=== PATIENT | male | born 1960 | race Caucasian/White ===

== ENCOUNTER 2017-03-20 08:16 | Day surgery (SDC) | payer OTHER ==
[~2017-03-20] VITALS: Ht 182.9 cm; Wt 117.5 kg
[~2017-03-20 08:16] MED LIST: COZAAR100 MG PO; FLUTICASONE PRO16 GM NAS; LAMISIL250 MG PO; NORCO 5-325 TA1 EACH PO; XARELTO15 MG PO
--- NOTE | 2017-03-20 10:33 | NUR ---
03/20/17 Rolando3 Celena Arellano 1029 O2 REMOVED. PT O2 SAT 100%
--- NOTE | 2017-03-21 12:04 | OR ---
[facility] [address] [place], [place] [address] Signed DATE OF OPERATION: 03/20/2017 SURGEON: Nelsy Tavarez MD PREOPERATIVE DIAGNOSES: 1. Father with a history of colonic polyps, age 50. 2. Personal history of hyperplastic polyps, age 51. 3. Diverticulosis. 4. External hemorrhoids with skin tags. POSTOPERATIVE DIAGNOSES: 1. Minimal to moderate sigmoid diverticulosis. 2. Minimal to moderate internal and external hemorrhoids with external skin tags. 3. A 4 to 6 mm polyps at 60, 40 and 30 cm. PROCEDURE: Colonoscopy with hot biopsy. ESTIMATED BLOOD LOSS: None. INDICATIONS: Zia is a 56-year-old gentleman asked to see me for followup colonoscopy. His father had colonic polyps removed at age 40. Zia had hyperplastic polyps removed at age 51. He is also known to have diverticulosis along with some external hemorrhoids and skin tags. In the meantime, he said he is doing great except he developed a thrombosis and has been on Xarelto. Consequently, we had him hold his Xarelto 2 days before the procedure. Otherwise, he said he is doing fine. Zia was very familiar with colonoscopy. He understands the risks including, but not limited to, gas bloating, crampy abdominal pain, bleeding, perforation, requiring surgery, and missed diagnosis. He also understands the need for IV conscious sedation. He had expressed understanding and wished to proceed. PROCEDURE NOTE: Zia was taken into our endoscopy suite and placed in the left lateral decubitus position. He was given divided doses of 7 mg of Versed and 150 mcg of fentanyl. A digital rectal exam was performed and this was unremarkable. The adult colonoscope was introduced and advanced all around into the cecum under direct visualization of camera without difficulty. His prep was good. Scope was then slowly withdrawn. The above-mentioned polyps were easily removed with the help of hot biopsy forceps. Once again, he does have minimal to moderate sigmoid diverticulosis. He has the external hemorrhoids with external anal skin tags. It also has a little bit internal hemorrhoids as well. After this, the gas had been suctioned out and the colonoscope removed. Zia tolerated the procedure quite well. Electronically Signed By: NELSY TAVAREZ MD 03/21/17 1204 PATIENT NAME: ZIA APODACA OPERATIVE REPORT DATE OF : 60 PHYSICIAN: NELSY TAVAREZ MD REPORT #: [id number] REPORT IS CONFIDENTIAL AND NOT TO BE RELEASED WITHOUT AUTHORIZATION [address] [address] Signed RECOMMENDATIONS: I will see Zia back in my office in 7 to 14 days to review his results. He can resume his Xarelto in 5 days. MD JUAN PABLO Hall/IERNE /[id number] cc: Veronica Pressley MD Electronically Signed By: NELSY TAVAREZ MD 03/21/17 1204 PATIENT NAME: ZIA APODACA LINDA OPERATIVE REPORT DATE OF : 60 PHYSICIAN: NELSY TAVAREZ MD REPORT #: [id number] REPORT IS CONFIDENTIAL AND NOT TO BE RELEASED WITHOUT AUTHORIZATION
== END 2017-03-20 10:53 | disposition home or self-care (01) ==
LOC: OPS 08:16 → DS 09:45 → OPS 09:45
PROVIDERS: Colon & Rectal Surgery
PROC: 0DBE8ZX Excision of Large Intestine, Via Natural or Artificial Opening Endoscopic, Diagnostic (ICD-10-PCS; 2017-03-20)
PROC: 0DBF8ZX Excision of Right Large Intestine, Via Natural or Artificial Opening Endoscopic, Diagnostic (ICD-10-PCS; 2017-03-20)
PROC: 0DBG8ZX Excision of Left Large Intestine, Via Natural or Artificial Opening Endoscopic, Diagnostic (ICD-10-PCS; principal; 2017-03-20 09:45)
DX: K64.4 Residual hemorrhoidal skin tags (principal); K64.8 Other hemorrhoids; K57.30 Diverticulosis of large intestine without perforation or abscess without bleeding; I10 Essential (primary) hypertension; G47.33 Obstructive sleep apnea (adult) (pediatric); E78.5 Hyperlipidemia, unspecified; K76.0 Fatty (change of) liver, not elsewhere classified; Z86.010 Personal history of colon polyps; Z83.71 Family history of colonic polyps; Z79.01 Long term (current) use of anticoagulants; Z86.718 Personal history of other venous thrombosis and embolism; Z90.89 Acquired absence of other organs; Z98.890 Other specified postprocedural states; Z88.0 Allergy status to penicillin; Z79.899 Other long term (current) drug therapy
CPT/HCPCS: 99152; 99153; J2250; J3010; J7120

== ENCOUNTER 2017-04-04 18:17 | Observation (INO) | payer OTHER ==
[~2017-04-04] VITALS: Ht 185.4 cm; Wt 112.4 kg
[2017-04-04] MEDS ORDERED: XARELTO20 MG PO (19:46)
--- OUTSIDE RECORDS SUMMARY | 2017-04-04 19:52 | XMS | Clinical Summary ---
Demographics + + + | Address | [address] | | | [place] [address] | + + + | Home Phone | | + + + | Preferred Language | Unknown | + + + | Marital Status | Single | + + + | Faith Affiliation | Unknown | + + + | Race | White | + + + | Ethnic Group | Not or | + + + Author + + + | Author | [facility] | + + + | Organization | [facility] | + + + | Address | Unknown | + + + | Phone | Unavailable | + + + Support +------+ +---------+ + | Name | Relationship | Address | Phone | +------+ +---------+ + ECON | Unknown | | +------+ +---------+ + Care Team Providers + +------+-------+ | Care Business Account Leader Name | Role | Phone | + +------+-------+ | Sharif Pressley MD | PP | tel | + +------+-------+ Source Comments SYDNI is fully live on both [facility] and [facility]ly [facility] Allergies + + + +--------+ + | Active Allergy | Reactions | Severity | Noted | Comments | | | | | Date | | + + + +--------+ + | Penicillins | Rash | | | | + + + +--------+ + Current Medications + + +-------+---------+------+------+-------+ | Prescription | Sig. | Disp. | Refills | Star | End | Statu | | | | | | t | Date | s | | | | | | Date | | | + + +-------+---------+------+------+-------+ | rivaroxaban 20 mg | Take by mouth. | | | | | Activ | | oral tablet | | | | | | e | + + +-------+---------+------+------+-------+ | fluticasone 50 | Instill 2 sprays | | | | | Activ | | mcg/actuation nasal | into each nostril | | | | | e | | spray,suspension | once daily. | | | | | | + + +-------+---------+------+------+-------+ Active Problems Not on file Social History + +-------+ +--------+------+ | Tobacco Use | Types | Packs/Day | Years | Date | | | | | Used | | + +-------+ +--------+------+ | Never Smoker | | | | | + +-------+ +--------+------+ + +------+---+---+ | Smokeless Tobacco: | Chew | | | | Former User | | | | + +------+---+---+ + + +---------+ + | Alcohol Use | Drinks/We | oz/Week | Comments | | | ek | | | + + +---------+ + | No | | | | + + +---------+ + + + + | Sex Assigned at | Date Recorded | | | | + + + | Not on file | | + + + Last Filed Vital Signs + + + + | Vital Sign | Reading | Time Taken | + + + + | Blood Pressure | 150/98 | 05/09/2016 12:43 PM PST | + + + + | Pulse | 87 | 05/09/2016 12:37 PM PST | + + + + | Temperature | 36.8 C (98.2 F) | 05/09/2016 12:37 PM PST | + + + + | Respiratory Rate | 16 | 05/09/2016 12:37 PM PST | + + + + | Oxygen Saturation | 98% | 05/09/2016 12:37 PM PST | + + + + | Inhaled Oxygen | - | - | | Concentration | | | + + + + | Weight | 122.3 kg (269 lb | 05/09/2016 12:37 PM PST | | | 11.2 oz) | | + + + + | Height | 185.4 cm (6' 1") | 05/09/2016 12:37 PM PST | + + + + | Body Mass Index | 35.58 | 05/09/2016 12:37 PM PST | + + + + Plan of Treatment + + + + + | Health Maintenance | Due Date | Last Done | Comments | + + + + + | INFLUENZA VACCINE | | | | | (FLU SHOT) | 7 | | | + + + + + Results Not on filefrom Last 3 Months
--- NOTE | 2017-04-04 23:16 | NUR ---
WHITEBOARD UPDATED, VITAL SIGNS TAKEN.
--- NOTE | 2017-04-04 23:45 | NUR ---
V/S ARE WDL, PT HAS ACTIVE BOWEL SOUNDS IN ALL QUADRANTS. PT DENIES PASSING GAS. PT DENIES PAIN AND N/V. ALL LOBES ARE CLEAR. PT IS AWAKE IN BED. NO NEW CONCERNS AT THIS TIME.
--- NOTE | 2017-04-05 00:02 | NUR ---
patient in bed doing well. does not need anything at this time.
--- NOTE | 2017-04-05 01:15 | NUR ---
PT IS AWAKE IN BED RESTING. PT DENIES PAIN AND N/V
--- NOTE | 2017-04-05 02:17 | NUR ---
REFILLED PATIENT'S ICE WATER
--- NOTE | 2017-04-05 03:46 | NUR ---
PT HAS BEEN SLEEPING SOME. PT STILL DENIES PAIN AND N/V. PT IS TRYING TO SLEEP SOME MORE.
--- NOTE | 2017-04-05 04:17 | NUR ---
PATIENT ASLEEP, DOES NOT NEED ANYTHING AT THIS TIME.
--- NOTE | 2017-04-05 05:50 | NUR ---
SINCE ARRIVAL ON FLOOR PT HAS DENIED PAIN AND N/V. V/S SO FAR HAVE BEEN WDL. PT HAS ACTIVE BOWEL TONES IN ALL QUADRANTS BUT HAS NOT PASSED GAS. ALL LOBES ARE CLEAR. PT AMBULATES WELL IN ROOM. NO NEW CONCERNS NOTED SO FAR.
--- NOTE | 2017-04-05 06:39 | NUR ---
refilled ice water
--- NOTE | 2017-04-05 07:21 | NUR ---
RECIEVED REPORT FROM RESIDENTIAL GREEN BUILDING DESIGNER NURSE. PATIENT SLEEPING IN BED. IVF INFUSING W/O DIFFICULTY. CALL LIGHT IN REACH.
--- NOTE | 2017-04-05 08:27 | NUR ---
PATIENT RESTING IN BED. IVF INFUSING W/O DIFFICULTY. PATIENT C/O PAIN IN LUQ ABOUT 07/31. HE DENIES PAIN MEDICATION AT THIS TIME. LUNGS CLEAR, HR REGULAR, ACTIVE BS. STATES HE PASSED GAS THIS MORNING AROUND 3AM. PATIENT DENIES NEEDS AT THIS TIME.
--- NOTE | 2017-04-05 09:30 | NUR ---
PATIENT UP TO BATHROOM INDEPENDENTLY. EMPTIED URINAL. REMOVED MEAL TRAY. PATIENT DRANK 100%. PATIENT STATES PAIN HAS DIMINISHED SINCE LAST TIME I ASKED. DENIES NEEDS. CALL LIGHT IN REACH.
--- NOTE | 2017-04-05 10:03 | NUR ---
IN TO SEE PATIENT.
[2017-04-05] MEDS ORDERED: LEVAQUIN500 MG PO (10:05)
[2017-04-05] MEDS ORDERED: GUAIFENESIN AC473 ML PO (10:12)
[2017-04-05] MEDS ORDERED: GUAIFENESIN DM S5 ML PO (10:14)
--- NOTE | 2017-04-05 10:28 | NUR ---
PT IS SITTING UP IN BED RESTING SAFELY WITH CALL LIGHT IN REACH. PT DID NOT NEED ANYTHING AT THE MOMENT
--- NOTE | 2017-04-05 11:21 | NUR ---
PATIENT RESTING IN BED READING A BOOK. DENIES NEEDS AT THIS TIME. CALL LIGHT IN REACH.
--- NOTE | 2017-04-05 11:41 | NUR ---
MED REC COMPLETE. PATIENT RECEIVES THEIR RIVAROXABAN (XARELTO) FROM [facility] DUE TO DISCOUNT PROGRAM, ALL OTHER MEDS FROM [facility].
--- NOTE | 2017-04-05 12:41 | NUR ---
PATIENT RESTING IN BED. UP TO BATHROOM INDEPENDENTLY. EMPTIED URINAL. FAMILY IN TO VISIT. PATIENT C/O PAIN IN LUQ 3/10, DENIES THE NEED FOR PAIN MEDICATION. PATIENT STATES THAT HIS PAIN DID INCREASE TO 4/10 AFTER HE DRANK FLUIDS FOR LUNCH, BUT SINCE THEN IT HAS SETTLED. PATIENT DENIES NEEDS. CALL LIGHT IN REACH. SCDS IN PLACE.
--- NOTE | 2017-04-05 12:51 | NUR ---
PT SITTING IN BED, WELCOMED ME IN. HE IS ALERT AND ORIENTED, AND SEEMS TO BE HANDLING THIS AILMENT APPROPRIATELY. IV ALARM GOING OFF, REALLY BOTHERING HIM. I WILL HAVE RN CHECK AND FOLLOW NEEDED
--- NOTE | 2017-04-05 14:00 | NUR ---
PATIENT RESTING IN BED. EMPTIED URINAL. VS OBTAINED. PATIENT STATES PAIN STILL A 3/10, STILL DENIES NEED FOR PAIN MEDICATION. CALL LIGHT IN REACH.
--- NOTE | 2017-04-05 14:33 | NUR ---
PT IS RESTING IN BED SAFELY WITH CALL LIGHT IN REACH.
--- NOTE | 2017-04-05 15:14 | NUR ---
PATIENT RESTING IN BED. SIGNIFICANT OTHER AT BEDSIDE. PATIENT HAD A BM TODAY AROUND 1PM. PATIENT STATES HIS BM WAS FORMED, SOMEWHAT HARD. BOWEL SOUNDS ARE ACTIVE. LUNGS CLEAR. NO EDEMA. PALPABLE PEDAL PULSES. SCDS IN PLACE. PATIENT C/O PAIN ABOUT 3/10 IN LUQ. DENIES NEED FOR PAIN MEDICATION. DELIVERED CUP OF BROTH PER PT'S REQUEST. PATIENT DENIES FURTHER NEEDS. CALL LIGHT IN REACH.
--- NOTE | 2017-04-05 16:30 | NUR ---
SET PATIENT UP FOR A SHOWER.
--- NOTE | 2017-04-05 17:18 | NUR ---
HOOKED PATIENT BACK UP TO INFUSION PUMP. SCDS IN PLACE. MEAL TRAY SERVED. PATIENT DENIES NEEDS.
--- NOTE | 2017-04-05 17:52 | NUR ---
PATIENT HAS BEEN IN A STEADY 3/10 PAIN ALL DAY. PAIN INCREASES AT TIMES WITH DRINKING, BUT OTHER THAN THAT HAS BEEN IN CONTROL. HE HAS BEEN REFUSING PAIN MEDICATION ALL DAY. PATIENT HAD A BM TODAY, HE HAS BEEN PASSING FLATUS. ACTIVE BOWEL TONES. SHOWERED TONIGHT. PLAN IS TO ADMINISTER IV ABX, MONITOR FOR CHANGES AND HOPE THE BODY WILL REPAIR ITSELF. VS STABLE.
--- NOTE | 2017-04-05 18:29 | EKG ---
[facility] [address] [facility] [place] [address] Signed Normal sinus rhythm Normal ECG No previous ECGs available Confirmed by ALEYDA MILTON MD ([id number]) on 04/05/2017 6:29:22 PM Electronically Signed By: ALEYDA MILTON MD 04/05/17 1829 PATIENT NAME: ZIA APODACA LINDA Electrocardiogram DATE OF : 60 PHYSICIAN: ALEYDA MILTON MD REPORT #: [id number] REPORT IS CONFIDENTIAL AND NOT TO BE RELEASED WITHOUT AUTHORIZATION
--- NOTE | 2017-04-05 19:15 | NUR ---
SHIFT REPORT RECIEVED. PATIENT RESTING IN BED. SCDS IN PLACE. IV FLUIDS INFUSING PER ORDER. PATIENT DENIES NEEDS. CALL LIGHT IN REACH.
--- NOTE | 2017-04-05 21:45 | NUR ---
PATIENT RESTING IN BED. AAOX3. LUNGS CLEAR. ABD IS MILDLY DISTENDED, BUT SOFT AND NON TENDER. PATIENT REPORTS DULL PAIN IN THE LUQ, 2/10. HE STATES WITH MOVEMENT OR DEEP BREATHS THE PAIN BECOMES SHARP. BOWEL SOUNDS ARE HYPOACTIVE THROUGHOUT. NO NAUSEA. TOLERATING CLEAR LIQUIDS. SCDS IN USE. IV FLUIDS INFUSING PER ORDER. NO REQUEST AT THIS TIME. CALL LIGHT IN REACH.
--- NOTE | 2017-04-05 23:55 | NUR ---
PATIENT RESTING IN BED. STATES THAT HE IS FEELING GOOD BUT REQUEST PRN PAIN MEDICATION FOR 4/10 PAIN. NO NUASEA. BOWEL SOUNDS ACTIVE AFTER PATIENT UP TO THE BATHROOM. ABD IS MILDLY DISTENDED AND SOFT. IV ABX INFUSING. IV SITE WNL. NO NEEDS AT THIS TIME. PRN PAIN MEDS PROVIDED PER ORDER.
--- NOTE | 2017-04-06 03:56 | NUR ---
PATIENT RESTING. APPEARS COMFORTABLE. RR 15. IV FLUIDS INFUSING, SITE WNL. CALL LIGHT IN REACH.
--- NOTE | 2017-04-06 05:30 | NUR ---
PATIENT RESTING IN BED. STATES HIS PAIN IS IMPROVED FROM YESTERDAY. HE FEELS THAT HE RESTED WELL. HE HAS NO NEEDS AT THIS TIME. IV ABX ADMINISTERED PER ORDER.
--- NOTE | 2017-04-06 06:03 | CONS ---
[facility] [address] [place], [place] [address] Signed DATE OF CONSULTATION: 04/05/2017 CHIEF COMPLAINT: Left upper quadrant abdominal pain. HISTORY OF PRESENT ILLNESS: Zia is a 56-year-old gentleman, who came to us on 03/20/2017 for a routine followup colonoscopy. We know that his father has a history of colonic polyps at age 50. Zia himself had hyperplastic polyps removed at age 51 and is known to have diverticulosis as well as some external hemorrhoids. On this occasion, we did see tomyiew-mo-qhtwinyb sigmoid diverticulosis along with ryytotx-fr-dqlcqske internal and external hemorrhoids with skin tags. In addition, he had 4 to 6-mm polyps removed at 60, 40, and 30 cm with the help of hot biopsy forceps. He told the day after surgery with some fever and chills and we warned him that it could be a perforation, but he rapidly got better by the next day, and so he continued at home on a regular diet. We saw him back in the office about a week afterwards and he seemed to be doing quite well. He then developed some recurrent pain in his left upper quadrant and had been to his primary care provider. He had been off the Xarelto for the further colonoscopy, so there were some concerns he might have a pulmonary embolism. He ended up having a CT scan of the chest performed and for reasons were not clear, the design engineering technician carried the CAT scanner all the way down to the abdomen. He does not have a pulmonary embolism, but he indeed had some inflammation with a few air bubbles around the splenic flexure of the colon in the left upper quadrant, consistent with the area of his pain. Consequently, I had been asked to see him last night in the emergency room. I had met with him last night after finishing some emergency surgery and he is doing very well except for little bit of pain in the left upper quadrant. He actually wanted to go home. I convinced Zia and his girlfriend that we should leave keeping for couple of days in the hospital for observation and IV antibiotics. Also, he has had a cough, so we chose Levaquin and Flagyl to cover both the lungs and the colon. His white count has been normal and has stayed normal. Overnight, he has done great and we are going to continue on a current conservative course. Incidentally, there is a 12-mm right thyroid nodule that will need further evaluation as an outpatient. ALLERGIES: Penicillin causes a rash. MEDICATIONS: 1. Xarelto 20 mg p.o. daily. 2. Fluticasone nasal suspension to be used as directed. PAST MEDICAL HISTORY: Dysuria, hypertension, left lower extremity venous thrombosis, obstructive sleep apnea, colonic polyps, colonic diverticulosis, unilateral inguinal hernia, prostatitis, hyperlipidemia, and hay fever. Electronically Signed By: NELSY TAVAREZ MD 04/06/17 0603 PATIENT NAME: ZIA APODACA CONSULTATION DATE OF : 60 PHYSICIAN: NELSY TAVAREZ MD REPORT #: [id number] REPORT IS CONFIDENTIAL AND NOT TO BE RELEASED WITHOUT AUTHORIZATION [address] [address] Signed PAST SURGICAL HISTORY: Includes tonsillectomy with adenoidectomy, repair of his shoulder separation in 1982, and at least 2 colonoscopies with biopsies. SOCIAL HISTORY: He likes to have little coffee each week. He is not a smoker. He chewed tobacco for 20 years, but he quit 4 years ago. He does not drink. He does not use drugs. 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 He is and has a daughter and one stepdaughter. His mother and father still [place]. FAMILY HISTORY: Paternal grandfather had bone cancer. Maternal grandfather had heart disease. Father had colonic polyps, around age 50. His father also had coronary artery disease and diabetes. His mother had hypertension and a sister had breast cancer. REVIEW OF SYSTEMS: He had 10 systems reviewed and otherwise, he is doing well. He talked about his CPAP mask at home. He said there has been no abnormal reaction from anesthesia for himself or others in the family. PHYSICAL EXAMINATION: VITAL SIGNS: Blood pressure 127/80, heart rate 65, respiratory rate 18, temperature 97.6, and he is 97% on room air. He is 6 feet and 1 inch tall at 112 kg. GENERAL: Zia is a 56-year-old gentleman, who appears healthy and at his stated age. LUNGS: Clear to auscultation. HEART: Regular rate and rhythm. ABDOMEN: Benign. Last night, he had a little tenderness up underneath the costal margin and this morning, it is quite minimal. RECTAL: Not performed. LABORATORY DATA: His white blood cell count 6.9, hemoglobin 14, and neutrophils 67. BUN 14 and creatinine 0.7. RADIOGRAPHIC STUDIES: CT scan of the chest and abdomen showed no evidence of pulmonary embolism, but he has some pericolonic inflammation with a few air bubbles around the splenic flexure. Incidentally, he has a 12-mm right thyroid nodule, which will need outpatient evaluation. ASSESSMENT AND PLAN: Zia is a 56-year-old gentleman, who presents as above with what appears to be a delayed and/or persistent microperforation of the colon following his colonoscopy with a biopsy Electronically Signed By: NELSY TAVAREZ MD 04/06/17 0603 PATIENT NAME: ZIA APODACA CONSULTATION DATE OF : 60 PHYSICIAN: NELSY TAVAREZ MD REPORT #: [id number] REPORT IS CONFIDENTIAL AND NOT TO BE RELEASED WITHOUT AUTHORIZATION [facility] [address] [place], [place] [address] Signed up at 60 cm. He has been stable over the 2 weeks and already feels better with one night of IV antibiotics. We will keep him on clear liquids today and continued IV antibiotics and we will try to treat this conservatively and see if it does heal on its own. Hopefully, it does not need surgery to repair that. I have reviewed this with Zia, his mother, and his girlfriend. They have expressed understanding and agreed to the above plan. MD JUAN PABLO Hall/ELAINEL /[id number] cc: MD Veronica Hall MD Electronically Signed By: NELSY TAVAREZ MD 04/06/17 0603 PATIENT NAME: ZIA APODACA CONSULTATION DATE OF : 60 PHYSICIAN: NELSY TAVAREZ MD REPORT #: [id number] REPORT IS CONFIDENTIAL AND NOT TO BE RELEASED WITHOUT AUTHORIZATION
--- NOTE | 2017-04-06 06:22 | NUR ---
PATIENT RESTED WELL LAST NIGHT. ABD IS SOFT, MILDLY DISTENDED W/ACTIVE BOWEL SOUNDS. MINIMAL PAIN. OUTPUT QS. IVF INFUSING. PATIENT INDEPENDENT IN ROOM. TOLERATING CLEAR LIQUIDS, NO NAUSEA.
--- NOTE | 2017-04-06 07:50 | NUR ---
RECIEVED BEDSIDE REPORT FROM RASHMI JIMÉNEZ. PT AWAKE AND ALERT IN BED, NO COMPLAINTS AT THIS TIME.
--- NOTE | 2017-04-06 08:21 | NUR ---
PT UP IN CHAIR, ATE BREAKFAST. PT STATES PAIN IS REDUCED FROM YESTERDAY, MORE OF A DISCOMFORT NOW. DECLINED PAIN MEDS AT THIS TIME. PT STATES HE HAD A FLU SHOT IN OR JANUARY, ORDER DC.
--- NOTE | 2017-04-06 11:10 | NUR ---
CHANGED PATIENT'S LINENS ALSO HE SAID HE PLANS ON TAKING A SHOWER SOMETIME THIS AFTERNOON. INDEPENDENT. SET UP HIS SHOWER FOR HIM.
--- NOTE | 2017-04-06 11:20 | NUR ---
PT IN CHAIR. PT REPORTS MINIMAL PAIN AT THIS TIME, DENIES NEED FOR PAIN MEDS. PT INDEPENDENT IN ROOM. VOIDING WELL, CALLS NEEDED.
--- NOTE | 2017-04-06 14:23 | NUR ---
PT SITTING IN CHAIR, I NOTICED HIS IV ALARM IS GOING OFF. HE WA BOTHERED BY IT. HE MENTIONED THOUGH THAT HE IS FEELING BETTER. I WAS ABLE TO HAVE RN COME AND CARE FOR HIS IV. GOOD VISIT, WILL CONTINUE TO FOLLOW
--- NOTE | 2017-04-06 17:24 | NUR ---
EDUCATED PT ON IV ALARMS AND WHAT SETS IT OFF. PT IS BENDING HER ELBOW CAUSING A DISTAL OCCLUSION. PT AWAKE AND ALERT, ATE 100% OF DINNER. PT REPORTS NO PAIN AT THIS TIME, PERSONAL BELONGINGS IN REACH, INDEPENDENT IN ROOM.
--- NOTE | 2017-04-06 17:35 | NUR ---
PT UP IN CHAIR MOST OF DAY. PT REPORTS NO PAIN ALL SHIFT. PT INDEPENDENT IN ROOM. URINE OUPUT QS, VOIDING WELL. NO BM SINCE ADMIT, ADVANCED TO FULL LIQUID TRAY. PT TOLERATING DIET WELL. IV FLUIDS RUNNING.
--- NOTE | 2017-04-06 19:08 | NUR ---
PATIENT WILL TAKE A SHOWER TOMORROW INSTEAD OF TONIGHT.
--- NOTE | 2017-04-06 19:15 | NUR ---
SHIFT REPORT RECIEVED. PATIENT RESTING IN BED. DENIES NEEDS AT THIS TIME. CALL LIGHT IN REACH.
--- NOTE | 2017-04-06 20:00 | NUR ---
PATIENT ASSESSMENT COMPLETE. PATIENT UP IN RECLINER. STATES HE HAD A GOOD DAY. DENIES PAIN AT THIS TIME. NO NAUSEA. IS TOLERATING FULL LIQUID DIET. IF FLUIDS INFUSING, SITE WNL. LUNGS CLEAR. ABD MILDLY DISTENDED, SOFT AND NONTENDER. BOWEL SOUNDS ACTIVE. CMS INTACT. PATIENT STEADY ON HIS FEET AND INDEPENDENT IN ROOM. REQUESTED A SHOWER. RN SET UP BATHROOM FOR SHOWER AND COVERED IV SITE. PATIENT WILL CALL WHEN HE IS DONE.
--- NOTE | 2017-04-06 20:30 | NUR ---
PATIENT DONE WITH SHOWER. RN CLEANED PATIENT'S ROOM AND BATHROOM. PATIENT IN BED WATCHING TV. IV SITE WNL. SCDS ON. NO PAIN. DENIES NEEDS AT THIS TIME. FRESH WATER PROVIDED.
--- NOTE | 2017-04-06 22:10 | NUR ---
PATIENT RESTING IN BED WATCHING TV. STATES PAIN IS 1/10, "JUST ANNOYING" AT THIS TIME. DENIES NEED FOR PAIN MEDS.
--- NOTE | 2017-04-07 00:30 | NUR ---
IV ABX ADMINISTERED PER ORDER. PATIENT REPORTS HAVING TROUBLE SLEEPING DUE TO THE CONSTANT ACHE IN HIS ABD, RATED 2/10. PRN PAIN MEDS PROVIDED. PATIENT DENIES FURTHER NEEDS.
--- NOTE | 2017-04-07 01:41 | NUR ---
PATIENT RESTING IN BED. APPEARS COMFORTABLE. RR 16. IV FLUIDS INFUSING, SITE WNL. CALL LIGHT IN REACH. SCDS ON.
--- NOTE | 2017-04-07 04:13 | NUR ---
PATIENT RESTING IN BED. EYES CLOSED. RR 14.
--- NOTE | 2017-04-07 05:48 | NUR ---
PATIENT UP TO THE BATHROOM AND THEN BACK TO BED. VITAL SIGNS COMPLETE. PATIENT BREAKFAST ORDER RECIEVED. FRESH WATER PROVIDED. NO FURTHER REQUEST AT THIS TIME.
--- NOTE | 2017-04-07 06:44 | NUR ---
PATIENT RESTED WELL THROUGHOUT THE SHIFT. MINIMAL PAIN, PRN PAIN MEDS X1. IV ABX ADMINISTERED, SITE WNL. PATIENT APPETITE IMPROVED. TOLERATING FULL LIQUIDS. INDEPENDENT IN ROOM. MEDIUM BOWEL MOVEMENT YESTERDAY.
--- NOTE | 2017-04-07 08:47 | NUR ---
RECIEVED REPORT FROM JESSY RN @ BEDSIDE. D5SHARDA INFUSING @ 85/HR. PT UP IN CHAIR NOW. SCD'S OFF. INDEPENDENT IN THE ROOM. VISITER AT BEDSIDE. DR. TAVAREZ IN TO ASSESS PT.
[2017-04-07] MEDS ORDERED: LEVAQUIN500 MG PO (10:05)
--- NOTE | 2017-04-07 10:05 | NUR ---
PATIENT WAS DRESSED AND READY TO DISCHARGE HOME. WE DID HIS DISCHARGE VITALS AND ASKED IF HE NEEDED ANYTHING AND HE SAID NO, HE WAS JUST CURIOUS WHAT THE MAP WAS.
[2017-04-07] MEDS ORDERED: FLAGYL500 MG PO (10:06)
--- NOTE | 2017-04-08 08:26 | DS ---
[facility] [address] [place], [place] [address] Signed ADMISSION DATE: 04/04/2017 DISCHARGE DATE: 04/07/2017 FINAL DIAGNOSES: 1. Perforated colon/splenic flexure. 2. 12 mm right thyroid nodule. PROCEDURE: CT scan of chest and abdomen. HISTORY OF PRESENT ILLNESS: Zia is a 56-year-old gentleman, who came to us 2 weeks prior to admission for a routine followup colonoscopy. He had small polyps removed at 60, 40, and 30 cm. He is also known to have diverticulosis along some internal and external hemorrhoids. He had low fever and chills the 1st day, but they went away. He felt much better. We talked with him over the phone. He then came in the office and seem to be doing fine about a week later. Within about 2 weeks, he was having left upper quadrant abdominal pain. He had been off his Xarelto for the procedure. Consequently, there was some concern that he might have a PE. He was sent to the emergency room and the CT scan did not show PE, but he did have some inflammation and some small air bubbles around the splenic flexure of his colon. Consequently, I admitted him and started him on IV antibiotics. HOSPITAL COURSE: Zia was admitted as above when we kept him on Levaquin and Flagyl. By the very next day, he was already feeling better. His white count was normal at 6.9 and it stayed in that range as we checked that each day. We have been able to advance his diet and he has done quite well with several bowel movements and lots of flatus. The pain in the left upper quadrant is very very minimal at this point. In fact, he really does not seem to have much pain on palpation. Due to his progress, we are going to let him go home on a low residue diet with Levaquin and Flagyl for 7 more days for a total of 10 days. In addition, he does have a right thyroid nodule that we saw on the CT scan. That will need to be further evaluated as an outpatient. DISCHARGE PLANS AND MEDICATIONS: Zia will be discharged home with Levaquin 500 mg p.o. daily for 7 days as well as Flagyl 500 mg p.o. t.i.d. for 7 days. He will continue a low residue diet. If he has any increase in pain what so ever, he will give our office a phone call. Otherwise, we will see him in the office in about a week to 10 days. In addition, he has a 12 mm right thyroid nodule that will need to be evaluated as an outpatient. Otherwise, he will resume his regular medications including his Xarelto. Zia expressed understanding and agrees to above plan. Electronically Signed By: NELSY EVANS MD 04/08/17 0826 PATIENT NAME: ZIA APODACA DISCHARGE SUMMARY DATE OF : 60 PHYSICIAN: NELSY EVANS MD REPORT #: [id number] REPORT IS CONFIDENTIAL AND NOT TO BE RELEASED WITHOUT AUTHORIZATION [address] [address] Signed Nelsy Evans MD ALB/MODL /[id number] cc: Nelsy Evans MD W Carlos Pressley MD Electronically Signed By: NELSY EVANS MD 04/08/17 0826 PATIENT NAME: APODACAZIA DISCHARGE SUMMARY DATE OF : 60 PHYSICIAN: NELSY EVANS MD REPORT #: [id number] REPORT IS CONFIDENTIAL AND NOT TO BE RELEASED WITHOUT AUTHORIZATION
== END 2017-04-07 10:40 | disposition home or self-care (01) ==
LOC: ED 18:17 → MS 18:19
PROVIDERS: ADMIT Colon & Rectal Surgery
DX: K91.71 Accidental puncture and laceration of a digestive system organ or structure during a digestive system procedure (principal); Y83.8 Other surgical procedures as the cause of abnormal reaction of the patient, or of later complication, without mention of misadventure at the time of the procedure; Y92.234 Operating room of hospital as the place of occurrence of the external cause; D68.51 Activated protein C resistance; R05 Cough; E04.1 Nontoxic single thyroid nodule; G47.33 Obstructive sleep apnea (adult) (pediatric); J30.1 Allergic rhinitis due to pollen; K57.90 Diverticulosis of intestine, part unspecified, without perforation or abscess without bleeding; K64.8 Other hemorrhoids; K64.4 Residual hemorrhoidal skin tags; Z79.51 Long term (current) use of inhaled steroids; Z86.010 Personal history of colon polyps; Z88.0 Allergy status to penicillin; Z86.718 Personal history of other venous thrombosis and embolism; Z87.891 Personal history of nicotine dependence; Z79.01 Long term (current) use of anticoagulants
CPT/HCPCS: 36415; 71010; 71260; 80048; 83735; 84100; 85025; 93005; 93010; 96365; 96366; 96368; 99284; G0378; J1956; J7120; Q9967

== ENCOUNTER 2025-04-06 05:55 | Day surgery (SDC) | payer OTHER ==
[2025-03-31 10:38] VITALS: BP 144/88
[2025-04-06] VITALS (9 sets, daily range): BP systolic 130–146; BP diastolic 74–87
[~2025-04-06] VITALS: Ht 185.4 cm; Wt 121.8 kg
[~2025-04-06 05:55] MED LIST changes: +FLAGYL500 MG PO; +FLOMAX0.4 MG PO; +GUAIFENESIN AC473 ML PO; +GUAIFENESIN DM S5 ML PO; +LACTATED RINGER'S 1,000 ML IV SCH; +LEVAQUIN500 MG PO; +XARELTO10 MG PO; +XARELTO20 MG PO
[2025-04-06] MEDS ORDERED: LIDOCAINE HCL 1% 5 ML SDV INJ ONE (07:00)
[2025-04-06] MEDS ORDERED: IBLOOD GLUCOSE TEST STRIP 1 EA TEST VI PRN ×2 (07:00→08:15)
[2025-04-06] MEDS ORDERED: CEFAZOLIN SODIUM 3 GM in SODIUM CHLORIDE 0.9% 100 ML IV SCH (07:00)
[2025-04-06] MEDS ORDERED: DEXAMETHASONE SOD PHOS 4 MG/ML VIAL ONE ×2 (07:16→07:55)
[2025-04-06] MEDS ORDERED: LIDOCAINE HCL 2% 5 ML SDV ONE (07:16)
[2025-04-06] MEDS ORDERED: ACETAMINOPHEN 1,000 MG/100 ML VIAL ONE (07:16)
[2025-04-06] MEDS ORDERED: fentaNYL citrate 100 MCG/2 ML VIAL ONE ×2 (07:16→08:10)
[2025-04-06] MEDS ORDERED: HYDROmorphone HCL 1 MG/ML SYR IV PRN ×2 (07:45→08:15)
[2025-04-06] MEDS ORDERED: OXYCODONE/APAP 5/325 TAB PO PRN (07:45)
[2025-04-06] MEDS ORDERED: LACTATED RINGER'S 1,000 ML IV SCH (07:45)
[2025-04-06] MEDS ORDERED: NALOXONE HCL 0.4 MG SYR IV PRN (08:15)
[2025-04-06] MEDS ORDERED: fentaNYL citrate 50 MCG/ML SDV IV PRN (08:15)
[2025-04-06] MEDS ORDERED: PROCHLORPERAZINE EDISYLATE 10 MG/2 ML VIAL IV PRN (08:15)
--- NOTE | 2025-04-06 09:40 | NUR ---
04/06/25 0940 Karely Meadows 0929: PT ARRIVED TO PACU VIA STRETCHER. PT NON AROUSABLE AT THIS TIME. PT ON 6L VIA MASK. PT ON MODERATE FLOW CBI AT THIS TIME. 0935: PT AROUSBALE AT THIS TIME. PT REAMINS ON 6L VIA MASK.
--- NOTE | 2025-04-06 10:10 | NUR ---
PT TO FLOOR VIA BED WITH RASHMI FERRO. PT AWAKE AND TALKING THOUGH REPORTS STILL BEING DROWSY. VS STABLE. PASCUAL DRAINING CLEAR URINE, TURNED DOWN CBI TO SLOW DRIP. DENIES PAIN OR NAUSEA.
[2025-04-06] MEDS ORDERED: OXYCODONE HCL5 M1 PO (10:42)
[2025-04-06] MEDS ORDERED: LEVOFLOXACIN500 MG PO (10:42)
[2025-04-06] MEDS ORDERED: SEVOFLURANE 250 ML BTL INH ONE (10:59)
--- NOTE | 2025-04-06 11:02 | NUR ---
ALERT AND ORIENTED IN BED. STATES HE LIVES IN A HOUSE WITH 2 STEPS TO GET INSIDE THAT ARE NOT AN ISSUE FOR HIM. HE HAS A CPAP MACHINE. HE DRIVES AT [place], BUT HIS DAUGHTER WILL BE PICKING HIM UP WHEN HE IS DISCHARGED. STATES HE IS AWAITING HIS CELL PHONE BE BROUGHT IN SO HE CAN PROVIDE HER INFORMATION. DENIES ANY FINANCIAL DIFFICULTIES. PATIENT PLANS TO DC TO HOME TOMORROW WITH DAUGHTER DRIVING HIM HOME. NO CM NEEDS AT THIS TIME.
--- NOTE | 2025-04-06 11:19 | NUR ---
VS REMAIN STABLE. PT DENIES PAIN OR DISCOMFORT. CALL LIGHT IN REACH.
--- NOTE | 2025-04-06 12:02 | NUR ---
GAVE PT ICE WATER AND COFFEE WITH CREAM. FAMILY IN ROOM. DENIES CONCERNS. PASCUAL CLEAR TO LIGHT YELLOW
--- NOTE | 2025-04-06 13:21 | NUR ---
THIS NURSE WILL BE TAKING OVER PATIENTS CARE UNTIL END OF SHIFT. PATIENT AWAKE AND SITTING UP EATING LUNCH AT THIS TIME. PASCUAL WAS EMPTIED AND DOCUMENTED ON FLOWSHEET. URINE CLEAR, NO BLOOD. DENIES PAIN JUST SLIGHT DISCOMFORT AT THE INSERT SITE OF PASCUAL. IV FLUIDS GOING. ALL I&O DOCUMENTED. BED IN LOW POSITION, CALL LIGHT WITHIN REACH. WATER AT BEDSIDE.
--- NOTE | 2025-04-06 13:46 | NUR ---
UR CLINICAL REVIEW: MCG-PER MCG REVIEW MEET EXTENDED STAY FOR TURP WITH NEED FOR 24 HR CBI WITH MONITORING SHOKAN SOURCE EXTENED STAY 04/06/25 @ 0737 ORDER MATCHES REG NO AUTH REQUIRED FOR EXTENDED STAY VISITS DISCHARGE TO HOME WHEN STABLE 04/07/25
--- NOTE | 2025-04-06 13:52 | NUR ---
HOURLY ROUNDING PATIENT LAYING IN BED, NO REQUEST FROM PATIENT AT THSI TIME. CALL LIGHT HAS BEEN PLACED WITHIN REACH
--- NOTE | 2025-04-06 16:14 | NUR ---
PATIENT PLAYING ON PHONE SITTING UP IN BED. PATIENT DENIES ANY CARES AT THIS TIME. CLEAR URINE STILL COMING OUT INTO PASCUAL.
--- NOTE | 2025-04-06 18:02 | NUR ---
PATIENT JUST FINISHED DINNER. THIS NURSE HAS NOT STOPPED HIS BLADDER IRRIGATION. URINE IS STILL YELLOW AND CLEAR.
--- NOTE | 2025-04-06 18:12 | NUR ---
hourly rounding patient request ice cup, ice cup was given, call light has been placed within reach
--- NOTE | 2025-04-06 19:15 | NUR ---
REPORT RECEIVED FORM RUPA CARABALLO. pt RESTING IN THE BED. BOARD UPDATED. pt DENIES ANY NEEDS AT THIS TIME. CALL LIGHT WITHIN REACH.
--- NOTE | 2025-04-06 21:00 | NUR ---
ASSESSMENT AND VITAL SIGNS DONE. pt RESTING IN THE BED. PASCUAL CARE DONE. URINE IS YELLOW IN TUBING. CBI TUBING CLAMPED AND CAPPED. WATER REFRESHED. NEW BAG OF IVF INFUSING. IV ASSESSED, WNL. pt DENIES ANY OTHER NEEDS AT THIS TIME. CALL LIGHT WITHIN REACH. pt DENIES ANY PAIN AT THIS TIME. pt HOME CPAP SET UP.
--- NOTE | 2025-04-06 22:15 | NUR ---
pt RESTING IN THE BED WITH CPAP ON. RR EVEN AND UNLABORED. CALL LIGHT WITHIN REACH.
--- NOTE | 2025-04-07 00:41 | NUR ---
pt SITTING UP IN THE BED WATCHING TV. WATER REFRESHED. pt DENIES ANY OTHER NEEDS AT THIS TIME. CALL LIGHT WITHIN REACH.
[2025-04-07 01:26] VITALS: BP 123/79
[2025-04-07 01:29] VITALS: BP 123/79
--- NOTE | 2025-04-07 01:30 | NUR ---
IN RM TO DO VITAL SIGNS. PASCUAL EMPTIED. URINE IS YELLOW IN TUBING. WATER REFRESHED. pt DENIES ANY NEEDS AT THIS TIME. CALL LIGHT WITHIN REACH.
--- NOTE | 2025-04-07 03:05 | NUR ---
pt RESTING IN THE BED WITH EYES CLOSED. RR EVEN AND UNLABORED. CALL LIGHT WITHIN REACH.
--- NOTE | 2025-04-07 04:24 | NUR ---
pt RESTING IN THE BED WITH EYES CLOSED. RR EVEN AND UNLABORED. CALL LIGHT WITHIN REACH.
[2025-04-07 06:03] VITALS: BP 117/75
[2025-04-07 06:08] VITALS: BP 117/75
--- NOTE | 2025-04-07 06:38 | NUR ---
pt RESTING IN THE BED. VITAL SIGNS DONE. WATER REFRESHED. URINE STILL CLEAR YELLOW IN TUBE. pt DENIES ANY OTHER NEEDS AT THIS TIME. CALL LIGHT WITHIN REACH.
--- NOTE | 2025-04-07 06:57 | NUR ---
IN RM TO START IV ABX. pt RESTING IN THE BED. pt DENIES ANY NEEDS AT THIS TIME. CALL LIGHT WITHIN REACH.
--- NOTE | 2025-04-07 07:25 | NUR ---
VERBAL REPORT RECIEVED FROM RASHMI LUCAS. PATIENT AWAKE AND ALERT LAYING IN BED ABLE TO ANSWER QUESTIONS APPROPRIATLY. IVF INFUSING WITHOUT DIFFICULTY. PATIENT DENIES PAIN OR NEEDS AT THIS TIME. CALL LIGHT IN REACH.
--- NOTE | 2025-04-07 07:37 | NUR ---
TC FROM DR NAVAS FOR UPDATE ON PATIENT SHE WILL NOT BE ABLE TO COME TO THE HOSPITAL THIS AM. PATIENT IS ABLE TO D/C AND FOLLOW UP ON SundayAPR 09 FOR PASCUAL REMOVAL.
--- NOTE | 2025-04-07 08:12 | NUR ---
PATIENT UPDATED ON D/C STATUS AND STATES HE WILL CALL HIS DAUGHTER FOR PICKUP. ASSESSMENT COMPLETED AND DOCUMENTED. IV D/C CATH TIP INTACT, PATIENT TOLERATED WELL. PATIENT DENIES PAIN OR NEEDS AT THIS TIME. CALL LIGHT IN REACH.
[2025-04-07 09:03] VITALS: BP 141/83
--- NOTE | 2025-04-07 09:04 | NUR ---
HOURLY ROUNDING PATIENT LAYING IN BED, NO REQUEST AT THIS TIME, CALL LIGHT HAS BEEN PLACED WITHINB REACH
--- NOTE | 2025-04-07 09:05 | NUR ---
ALERT AND ORIENTED IN BED. DENIES CM NEEDS. PLANS TO DC TO HOME TODAY WITH DAUGHTER PROVIDING TRANSPORTATION.
[2025-04-07] MEDS ORDERED: FLONASE ALLERG9.9 ML NAS (09:26)
--- NOTE | 2025-04-07 09:27 | NUR ---
MED REC COMPLETE
--- NOTE | 2025-04-07 10:34 | NUR ---
PATIENT EDUCATED ON PASCUAL CARE AT HOME AND ABLE TO PERFORM TASK EFFICIANTLY. PATIENT IS DRESSED AND D/C PACKET GIVEN. HOSE SPRAYER ASSISTING PATIENT OFF UNIT.
== END 2025-04-07 10:50 | disposition home or self-care (01) ==
LOC: DS 05:55 → MS 10:24 → DS 04-07 10:50
PROVIDERS: ATTEND Urology
PROC: 0VT08ZZ Resection of Prostate, Via Natural or Artificial Opening Endoscopic (ICD-10-PCS; principal; 2025-04-06 07:30)
DX: N40.1 Benign prostatic hyperplasia with lower urinary tract symptoms (principal); R33.9 Retention of urine, unspecified; N32.0 Bladder-neck obstruction; Z88.0 Allergy status to penicillin
CPT/HCPCS: 00914; 51700; 96360; 96361; 96365; C1713; C1769; J0131; J0688; J0696; J1100; J2003; J2405; J2704; J3010; J7121